=== PATIENT | male | born 1980 | race Two or more races ===

== ENCOUNTER → 2017-02-05 | Outpatient (CLI) | payer OTHER | LOC: CIMAGING 12:45 | PROVIDERS: ATTEND Podiatrist | DX: S93.421A Sprain of deltoid ligament of right ankle, initial encounter (principal) | CPT/HCPCS: 73610-PO ==

== ENCOUNTER → 2017-03-02 | Outpatient (CLI) | payer OTHER | LOC: CIMAGING 14:28 | PROVIDERS: ATTEND Podiatrist | DX: S92.151D Displaced avulsion fracture (chip fracture) of right talus, subsequent encounter for fracture with routine healing (principal); S82.51XD Displaced fracture of medial malleolus of right tibia, subsequent encounter for closed fracture with routine healing | CPT/HCPCS: 73610-PO ==